=== PATIENT | female | born 1945 | race Two or more races ===

== ENCOUNTER 2017-03-30 16:05 | Emergency (ER) | payer MEDICARE, OTHER ==
[~2017-03-30] VITALS: Ht 157.5 cm; Wt 2.4 kg
[~2017-03-30 16:05] MED LIST: ATEN50TA PO; DIPH1TAB PO; LOSA1TAB36 PO; MECL-118 PO; MELO-270 PO; METH10TA7 PO; OMEP40CA37 PO; SULF1TAB44 PO
--- NOTE | 2017-03-30 16:15 | NUR ---
RN OPENING NOTE ER PT ARRIVED FROM HOME WITH DTR BY CAR. TRIP AND FALL NO LOSS OF CONSCIOUSNESS. C/O LEFT HUMERAL PAIN 10/16. AMBL INDEP. AAO4. NORMAL RESP. PINK WARM DRY SKIN.
[2017-03-30] MEDS ORDERED: HYDROCODONE/APAP 5/325MG 1 EACH TABLET ONE (16:58)
[2017-03-30] MEDS ORDERED: HYDROCODONE/APAP 5/325MG 1 EACH TABLET PO ONE (17:00)
[2017-03-30 17:40] VITALS: BP 138/80
--- NOTE | 2017-03-30 17:41 | NUR ---
Patient discharged to home in stable condition. Written and verbal after care instructions given. Patient verbalizes understanding of instruction.
== END 2017-03-30 17:42 | disposition home or self-care (01) ==
LOC: ER 16:17
DX: S42.292A Other displaced fracture of upper end of left humerus, initial encounter for closed fracture (principal); I10 Essential (primary) hypertension; W18.39XA Other fall on same level, initial encounter; Y93.89 Activity, other specified; Y92.89 Other specified places as the place of occurrence of the external cause; Y99.8 Other external cause status
CPT/HCPCS: 73030; 73080; 99284; A4606; Z7610

== ENCOUNTER 2019-11-05 15:45 | Inpatient (IN) | payer MEDICARE, OTHER ==
[~2019-11-05] VITALS: Ht 160 cm; Wt 83.7 kg
[~2019-11-05 15:45] MED LIST changes: +MELO-105 PO; -MELO-270 PO; +OMEP40CA13 PO; -OMEP40CA37 PO
--- NOTE | 2019-11-05 16:15 | NUR ---
patient bib daughter from home, c/o RUQ abd pain and diarrhea x 2 weeks. On room air breathing evenly and unlabored. connected to the monitor and pulse ox. kept comfortable, will continue to monitor accordingly.
[2019-11-05] MEDS ORDERED: ONDANSETRON HCL/PF 4 MG/2 ML VIAL ONE (16:18)
[2019-11-05] MEDS ORDERED: MORPHINE SULFATE INJ 4 MG/ML DISP.SYRIN ONE (16:18)
[2019-11-05 16:27] LABS: BASOPHILS # (AUTO) 0.1 /CMM (0.0-0.2); BASOPHILS % (AUTO) 0.6 % (0.0-2.0); EOSINOPHILS % (AUTO) 1.7 % (0.0-6.0); HEMATOCRIT 33 % (33-45); HEMOGLOBIN 10.7 g/dL (11.5-14.8); LYMPHOCYTES # (AUTO) 2.1 /CMM (0.8-4.8); MEAN CORPUSCULAR HGB CONC 33 g/dl (31.0-36.0); MEAN CORPUSCULAR VOLUME 85 fL (82-100); MONOCYTES # (AUTO) 1.1 /CMM (0.1-1.30); MONOCYTES % (AUTO) 6.9 % (2.0-12.0); NEUTROPHILS # (AUTO) 12.6 /CMM (1.8-8.9); NEUTROPHILS % (AUTO) 77.8 % (43.0-81.0); PLATELET COUNT (AUTO) 289 /CMM (150-450); RED BLOOD CELL COUNT(AUTO) 3.87 MIL/uL (4.0-5.2); WHITE BLOOD COUNT (AUTO) 16.2 K/uL (4.3-11.0)
[2019-11-05] MEDS ORDERED: MORPHINE SULFATE INJ 2 MG/ML DISP.SYRIN IV ONE (16:30)
[2019-11-05] MEDS ORDERED: ONDANSETRON HCL/PF 4 MG/2 ML VIAL IVP ONE (16:30)
--- NOTE | 2019-11-05 16:31 | NUR ---
elevator technician at bedside for exam
[2019-11-05 16:47] LABS: ALANINE AMINOTRANSFERASE 35 U/L (12-78); ALBUMIN 3.5 g/dL (3.4-5.0); ALKALINE PHOSPHATASE 87 U/L (46-116); ASPARTATE AMINOTRANSFERASE 23 U/L (15-37); BILIRUBIN,DIRECT 0.2 mg/dL (0.0-0.2); BILIRUBIN,TOTAL 0.7 mg/dL (0.2-1.0); CALCIUM, SERUM 8.9 mg/dL (8.5-10.1); CARBON DIOXIDE 29 mmol/L (21-32); CHLORIDE 98 mmol/L (98-107); CREATININE 1.4 mg/dL (0.6-1.3); GLUCOSE 99 mg/dL (74-106); LIPASE 169 U/L (73-393); SODIUM SERUM 137 mmol/L (136-145); TOTAL PROTEIN, SERUM 7.7 g/dL (6.4-8.2); UREA NITROGEN, BLOOD 31 mg/dL (7-18)
[2019-11-05 16:48] LABS: POTASSIUM 2.7 mmol/L (3.5-5.1)
[2019-11-05] MEDS ORDERED: IV PREMIX D5 1/2NS + KCL 1,000 ML IV ONE (16:49)
[2019-11-05] MEDS ORDERED: PIPERACILLIN /TAZOBACTAM 3.375 G in IV D5W 50 ML IV ONE (17:00)
--- NOTE | 2019-11-05 17:08 | NUR ---
TEXTED SURGERY TRAIN STARTER IS DR. THOMPSON.
--- NOTE | 2019-11-05 17:09 | NUR ---
SUBMITTED MOVE SHEET AND CALLED FOR BED.
--- NOTE | 2019-11-05 17:11 | NUR ---
EPIC PAGED ITS SONALI.
[2019-11-05] MEDS ORDERED: LOSA50TA39 MT (17:15)
[2019-11-05] MEDS ORDERED: MYRBETRIQ MT (17:15)
[2019-11-05] MEDS ORDERED: DEXL30CA3 MT (17:15)
[2019-11-05] MEDS ORDERED: MELO-107 MT (17:15)
[2019-11-05] MEDS ORDERED: TEMA15CA MT (17:15)
[2019-11-05] MEDS ORDERED: ERGO500014 MT (17:15)
[2019-11-05] MEDS ORDERED: GABA300C MT (17:15)
[2019-11-05] MEDS ORDERED: OMEP20CA15 MT (17:15)
[2019-11-05] MEDS ORDERED: MAGN400T26 MT (17:15)
[2019-11-05] MEDS ORDERED: MONT10TA22 MT (17:15)
[2019-11-05] MEDS ORDERED: ESCI20TA MT (17:15)
[2019-11-05] MEDS ORDERED: FERR325T24 MT (17:15)
[2019-11-05] MEDS ORDERED: METH5TAB6 MT (17:15)
[2019-11-05] MEDS ORDERED: ASPI-1152 MT (17:15)
[2019-11-05] MEDS ORDERED: HYDR12.55 MT (17:15)
[2019-11-05] MEDS ORDERED: ALEN70TA6 MT (17:15)
--- NOTE | 2019-11-05 17:22 | NUR ---
ER DOC TALKING TO ADMITING MD
--- NOTE | 2019-11-05 17:23 | NUR ---
ROOM ASSIGNMENT: [id number] TELE
[2019-11-05 17:34] LABS: APPEARANCE,URINE Clear (CLEAR); BILIRUBIN,URINE Negative (NEGATIVE); BLOOD, URINE Trace-intact Ery/uL (NEGATIVE); COLOR,URINE Yellow (YELLOW); KETONES,URINE Negative (NEGATIVE); LEUKOCYTE ESTERASE ,URINE Trace (NEGATIVE); NITRITE, URINE Negative (NEGATIVE); PROTEIN,URINE 30 mg/dl (NEGATIVE); UGLUCOSE Negative (NEGATIVE); UROBILINOGEN,URINE 0.2 EU/dL (0.2)
[2019-11-05 17:46] LABS: BACTERIA,URINE Many /HPF (None Seen)
[2019-11-05 17:47] LABS: SQUAMOUS EPITHELIAL CELL,UR Few /HPF (None Seen)
--- NOTE | 2019-11-05 17:59 | NUR ---
Report given to yanna SÁNCHEZ for coco.
[2019-11-05] MEDS ORDERED: TEMAZEPAM 15 MG CAPSULE PO PRN (18:00)
--- NOTE | 2019-11-05 18:29 | NUR ---
wheeled patient via gurney accompanied by RN and emt in no distress. RN at bedside to assume care.
--- NOTE | 2019-11-05 19:20 | NUR ---
RN NOTES, PATIENT IN BED ADMITTED FROM ER EARLIER, AT THIS TIME PATIENT IN BED DAUGHTER AT BEDSIDE, ADMITTED UNDER DR LYON SERVICES, WITH ADMITTING DX CHOLECYSTITIS, PATIENT WITH ABDOMINAL PAIN SUBSIDED AT THIS TIME, MORPHINE ADMINISTERED IN ER, WILL F/U FOR PAIN MANAGEMENT, PATIENT A/O X3 ABLE TO VERBALIZED NEEDS AND CONCERNS, BREATHING EVEN AND UNLABORED, NO SOB/ACUTE DISTRESS NOTED, AFEBRILE AT THIS TIME, LEFT AC IV ACCESS 18G PATENT AND INTACT, IVF INFUSING ORDERED, BED LOCKED AND IN LOW POSITION, WILL CONTINUE TO MONITOR CLOSELY, AND F/U WITH MD ORDERS.
[2019-11-05] MEDS ORDERED: ONDANSETRON HCL/PF 4 MG/2 ML VIAL IVP PRN (19:30)
[2019-11-05] MEDS ORDERED: Z GUARD REMEDY 2 OZ OINT TP PRN (19:30)
[2019-11-05] MEDS ORDERED: HYDROCODONE/APAP 5/325MG 1 EACH TABLET PO PRN (19:30)
[2019-11-05] MEDS ORDERED: MAG HYDROX/AL HYDROX/SIMETH 30 ML UDC PO PRN (19:30)
[2019-11-05] MEDS ORDERED: ACETAMINOPHEN 325 MG TABLET PO PRN (19:30)
[2019-11-05] MEDS ORDERED: MAGNESIUM HYDROXIDE 30 ML UDC PO PRN (19:30)
[2019-11-05 20:00] VITALS: BP 143/64
[2019-11-05] MEDS: MORPHINE SULFATE INJ 2 MG/ML DISP.SYRIN IV PRN (20:34)
[2019-11-05] MEDS: PIPERACILLIN /TAZOBACTAM 3.375 G in IV D5W 100 ML IV SCH (21:17)
[2019-11-05] MEDS: IV D5/0.45 NACL 1,000 ML IV PRN (23:20)
[2019-11-06 04:00] VITALS: BP 119/61
[2019-11-06 04:12] VITALS: BP 119/61
[2019-11-06] MEDS: MORPHINE SULFATE INJ 2 MG/ML DISP.SYRIN IV PRN ×4 (04:49→21:00)
[2019-11-06] MEDS: PIPERACILLIN /TAZOBACTAM 3.375 G in IV D5W 100 ML IV SCH ×3 (05:00→21:54)
[2019-11-06 06:18] LABS: BASOPHILS # (AUTO) 0.1 /CMM (0.0-0.2); BASOPHILS % (AUTO) 0.6 % (0.0-2.0); EOSINOPHILS % (AUTO) 2.9 % (0.0-6.0); HEMATOCRIT 30 % (33-45); HEMOGLOBIN 9.8 g/dL (11.5-14.8); LYMPHOCYTES # (AUTO) 1.9 /CMM (0.8-4.8); LYMPHOCYTES % (AUTO) 14.5 % (20.0-44.0); MEAN CORPUSCULAR HGB CONC 33 g/dl (31.0-36.0); MEAN CORPUSCULAR VOLUME 85 fL (82-100); MONOCYTES % (AUTO) 7.7 % (2.0-12.0); NEUTROPHILS # (AUTO) 9.9 /CMM (1.8-8.9); NEUTROPHILS % (AUTO) 74.3 % (43.0-81.0); PLATELET COUNT (AUTO) 257 /CMM (150-450); RED BLOOD CELL COUNT(AUTO) 3.57 MIL/uL (4.0-5.2); WHITE BLOOD COUNT (AUTO) 13.3 K/uL (4.3-11.0)
[2019-11-06 06:47] LABS: ALBUMIN 2.8 g/dL (3.4-5.0); BILIRUBIN,DIRECT 0.4 mg/dL (0.0-0.2); BILIRUBIN,TOTAL 1.2 mg/dL (0.2-1.0); CALCIUM, SERUM 8.4 mg/dL (8.5-10.1); CREATININE 1.2 mg/dL (0.6-1.3); MAGNESIUM 1.5 mg/dL (1.8-2.4); PHOSPHORUS 2.8 mg/dL (2.5-4.9); TOTAL PROTEIN, SERUM 6.8 g/dL (6.4-8.2)
--- NOTE | 2019-11-06 06:48 | NUR ---
RN NOTES, PATIENT IN BED, ASLEEP AT THIS TIME, BUT AROUSABLE TO VERBAL STIMULI, A/O X3, ABLE TO VERBALIZE NEEDS AND CONCERNS, NO SIGNIFICANT CHANGE IN CONDITION DURING THE NIGHT, BREATHING EVEN AND UNLABORED, NO SOB/ACUTE DISTRESS NOTED, ON PAIN MANAGEMENT, PER DR MARCEL THOMPSON AWARE OF PATIENT POSSIBLE PROCEDURE FOR CHOLECYSTITIS, BED LOCKED IN IN LOW POSITION, CALL LIGHT W/I REACH, WILL ENDORSE CONTINUITY OF CARE TO ONCOMING NURSE.
[2019-11-06 07:01] LABS: POTASSIUM 2.6 mmol/L (3.5-5.1)
[2019-11-06] MEDS: PANTOPRAZOLE 40 MG TABLET.DR PO SCH (07:30)
--- NOTE | 2019-11-06 07:32 | NUR ---
CONTACTED [facility] IN REGARDS TO PATIENT'S K+ 2.6. AWAITING CALL BACK.
[2019-11-06 08:00] VITALS: BP 112/64
[2019-11-06] MEDS: MONTELUKAST SODIUM (10MG) 10 MG TABLET PO SCH (08:00)
[2019-11-06] MEDS ORDERED: POTASSIUM CHLORIDE 10 MEQ/50 ML PREMIXED IVPB FOR PERIPHERAL LINE IV ONE (08:00)
[2019-11-06] MEDS: METHIMAZOLE (5MG) 5 MG TABLET PO SCH (08:00)
[2019-11-06] MEDS: LOSARTAN POTASSIUM 50 MG TABLET PO SCH ×2 (08:00→17:00)
[2019-11-06] MEDS: MAGNESIUM OXIDE 400 MG TABLET PO SCH (08:00)
[2019-11-06] MEDS: GABAPENTIN 300 MG CAPSULE PO SCH (08:00)
[2019-11-06] MEDS: ESCITALOPRAM OXALATE (10 MG) 10 MG TABLET PO SCH (08:00)
[2019-11-06 08:28] LABS: IRON, SERUM 23 ug/dl (50-175); TOTAL IRON BINDING CAPACITY 203 ug/dl (250-450)
--- NOTE | 2019-11-06 08:30 | NUR ---
RN OPENING NOTE: RECEIVED PATIENT IN BED THIS MORNING. PATIENT IS ALERT AND ORIENTED X4, RESPONDS APPROPRIATELY, SERBIAN SPEAKING ONLY. AMBULATORY, STEADY GAIT. NPO STATUS. #18 LAC, C/D/I. FLUSHING WELL, NO SIGNS OF COMPLICATIONS NOTED. ISOLATION PRECAUTIONS TO R/O COVID. SAFETY MEASURES IMPLEMENTED, BED IN LOWEST POSITION, LOCKED, SIDE RAILS UP X2, CALL LIGHT WITHIN REACH. WILL CONTINUE TO MONITOR PATIENT FOR CHANGES.
[2019-11-06 08:42] LABS: FERRITIN 178 ng/mL (8-388)
[2019-11-06] MEDS: Magnesium 1GM/D5W 100ML PREMIX 100 ML IV SCH ×2 (08:50→09:55)
[2019-11-06] MEDS: POTASSIUM CL. PREMIX PERIPHER. 50 ML IV SCH ×6 (08:50→17:02)
[2019-11-06] MEDS ORDERED: HYDROCHLOROTHIAZIDE 25 MG TABLET PO SCH (09:00)
--- NOTE | 2019-11-06 11:49 | NUR ---
MRI PENDING DUE TO COVID RESULT.
--- NOTE | 2019-11-06 12:56 | NUR ---
RADIOLOGY CONTACTED ME IN REGARDS TO MRCP WITHOUT CONTRAST. RADIOLOGY UNABLE TO PERFORM PROCEDURE UNTIL COVID RESULTS ARE AVAILABLE. MD DESTINEE AWARE AND OK WITH IT.
[2019-11-06 16:20] VITALS: BP 121/98
--- NOTE | 2019-11-06 19:24 | NUR ---
RN CLOSING NOTE: PATIENT REMAINS IN BED. NO SIGNS OF ACUTE DISTRESS NOTED. SAFETY MEASURES IMPLEMENTED, BED IN LOWEST POSITION, LOCKED, SIDE RAILS UP, CALL LIGHT WITHIN REACH. ENDORSED TO ONCOMING SHIFT RN FOR CONTINUITY OF CARE.
[2019-11-06 20:00] VITALS: BP_SYST 119; BP_SYST 147; BP_DIAS 61; BP_DIAS 72
--- NOTE | 2019-11-06 20:00 | NUR ---
MS RN NOTE PT IN BED AWAKE, NO DISTRESS OR DISCOMFORT NOTED. DENIES PAIN. WANTS TO GO TO BATHROOM, ASSISTED HER. IVF D5 1/2 NS AT 75 ML/HR AND ZOSYN 3.375 G INFUSING AT 25 ML/HR LAC. NO S/S OF INFILTRATION NOTED. SIDE RAILS UP X 2 AND CALL LIGHT WITHIN REACH. VSS. CONTINUE TO MONITOR HER.
--- NOTE | 2019-11-06 21:00 | NUR ---
MS RN NOTE PT C/O PAIN 8/10 IN RIGHT UPPER ABD, MORPHINE 2 MG IVP GIVEN. CONTINUE TO MONITOR HER.
--- NOTE | 2019-11-06 21:30 | NUR ---
MS RN NOTE PAIN SUBSIDED 06/18. NO FURTHER DISTRESS NOTED. ALL NEEDS ATTENDED.
[2019-11-06] MEDS: IV D5/0.45 NACL 1,000 ML IV PRN (21:55)
[2019-11-07 04:00] VITALS: BP 127/72
[2019-11-07] MEDS: MORPHINE SULFATE INJ 2 MG/ML DISP.SYRIN IV PRN ×4 (04:33→20:12)
[2019-11-07] MEDS: PIPERACILLIN /TAZOBACTAM 3.375 G in IV D5W 100 ML IV SCH (05:37)
--- NOTE | 2019-11-07 06:22 | NUR ---
MS RN NOTE PT IN BED ASLEEP, AROUSABLE. NO DISTRESS OR DISCOMFORT NOTED. DENIES PAIN. IVF INFUSING WELL, NO S/S INFILTRATION NOTED. ALL NEEDS ATTENDED. SIDE RAILS UP X 2 AND CALL LIGHT WITHIN REACH. WILL ENDORSE TO DAY SHIFT NURSE FOR CONTINUE TO CARE.
[2019-11-07 06:57] LABS: BASOPHILS # (AUTO) 0.1 /CMM (0.0-0.2); BASOPHILS % (AUTO) 0.6 % (0.0-2.0); EOSINOPHILS % (AUTO) 4.3 % (0.0-6.0); HEMATOCRIT 31 % (33-45); LYMPHOCYTES # (AUTO) 1.9 /CMM (0.8-4.8); LYMPHOCYTES % (AUTO) 15.9 % (20.0-44.0); MEAN CORPUSCULAR HGB CONC 33 g/dl (31.0-36.0); MEAN CORPUSCULAR VOLUME 85 fL (82-100); MONOCYTES % (AUTO) 8.3 % (2.0-12.0); NEUTROPHILS # (AUTO) 8.3 /CMM (1.8-8.9); NEUTROPHILS % (AUTO) 70.9 % (43.0-81.0); PLATELET COUNT (AUTO) 267 /CMM (150-450); RED BLOOD CELL COUNT(AUTO) 3.61 MIL/uL (4.0-5.2); WHITE BLOOD COUNT (AUTO) 11.7 K/uL (4.3-11.0)
[2019-11-07 07:08] LABS: ALBUMIN 2.7 g/dL (3.4-5.0); BILIRUBIN,TOTAL 1.1 mg/dL (0.2-1.0); CALCIUM, SERUM 8.7 mg/dL (8.5-10.1); CREATININE 1.1 mg/dL (0.6-1.3); MAGNESIUM 1.7 mg/dL (1.8-2.4); PHOSPHORUS 2.2 mg/dL (2.5-4.9); POTASSIUM 2.9 mmol/L (3.5-5.1); TOTAL PROTEIN, SERUM 6.7 g/dL (6.4-8.2)
[2019-11-07 07:27] LABS: THYROID STIMULATING HORMONE 1.668 uIU/mL (0.358-3.74)
[2019-11-07] MEDS: PANTOPRAZOLE 40 MG TABLET.DR PO SCH (07:30)
[2019-11-07 08:00] VITALS: BP 137/62
--- NOTE | 2019-11-07 08:00 | NUR ---
[facility] RN OPENING NOTE: RECEIVIED PATIENT IN BED. PT IS ON ROOM AIR. PT IS NPO. COVID TESTING STILL PENDING. NO SIGNS OF ACUTE DISTRESS NOTED. SAFETY MEASURES IMPLEMENTED, BED IN LOWEST POSITION, LOCKED, SIDE RAILS UP, CALL LIGHT WITHIN REACH. WILL CONTINUE TO MONITOR
[2019-11-07] MEDS: GABAPENTIN 300 MG CAPSULE PO SCH (09:00)
[2019-11-07] MEDS: LOSARTAN POTASSIUM 50 MG TABLET PO SCH ×2 (09:00→16:55)
[2019-11-07] MEDS: ESCITALOPRAM OXALATE (10 MG) 10 MG TABLET PO SCH (09:00)
[2019-11-07] MEDS: MAGNESIUM OXIDE 400 MG TABLET PO SCH (09:00)
[2019-11-07] MEDS: METHIMAZOLE (5MG) 5 MG TABLET PO SCH (09:00)
[2019-11-07] MEDS: MONTELUKAST SODIUM (10MG) 10 MG TABLET PO SCH (09:00)
[2019-11-07] MEDS: NEUTRA PHOS 1 POWD.PACKET PO SCH ×2 (10:00→17:05)
[2019-11-07] MEDS: POTASSIUM CHLORIDE 20 MEQ TAB.PRT.SR PO SCH ×3 (10:00→12:00)
[2019-11-07] MEDS: Magnesium 1GM/D5W 100ML PREMIX 100 ML IV SCH ×2 (10:45→10:47)
[2019-11-07] MEDS: CEFTRIAXONE 1 G in IV D5W 50 ML IV SCH (14:50)
[2019-11-07 15:10] LABS: *SPE A/G RATIO 0.8 (0.7-1.7); *SPE ALBUMIN 2.7 g/dL (2.9-4.4); *SPE ALPHA-1-GLOBULIN 0.4 g/dL (0.0-0.4); *SPE BETA GLOBULIN 1.1 g/dL (0.7-1.3); *SPE GLOBULIN, TOTAL 3.2 g/dL (2.2-3.9); *SPE M-SPIKE Not Observed g/dL (Not Observed); *SPEGAMMA GLOBULIN 0.7 g/dL (0.4-1.8)
--- NOTE | 2019-11-07 17:41 | NUR ---
[facility] RN CLOSING NOTES PATIENT IS RESTING IN BED. PT IS ON ROOM AIR. PT IS NPO. COVID TESTING STILL PENDING. NO SIGNS OF ACUTE DISTRESS NOTED. ALL NEED ARE MET. INFORMED DR THAT FAMILY MEMBER DAUGHTER WOULD LIKE TO SPEAK TO THE DOCTOR. SAFETY MEASURES IMPLEMENTED, BED IN LOWEST POSITION, LOCKED, SIDE RAILS UP, CALL LIGHT WITHIN REACH. WILL ENDORSE TO NIGHTSHIFTS.
[2019-11-07 20:00] VITALS: BP 138/64
--- NOTE | 2019-11-07 20:00 | NUR ---
RN OPENING NOTE PT RECEIVED IN BED .PT IS A/A/O X4. NO RESPIRATORY DISTRESS NOTED. PT SATING 95% ON RA.PT HAS 20 G ON LAC D2 1/2 NS RUNNING AT 75 ML/H DRESSING INTACT. SAFETY MEASURES IN PLACE BED AT LOWEST POSITION, LOCKED, SIDE RAILS UP X2 , CALL LIGHT IN REACH. WILL CONTINUE TO MONITOR.
[2019-11-07] MEDS: IV D5/0.45 NACL 1,000 ML IV PRN (20:11)
--- NOTE | 2019-11-07 21:00 | NUR ---
RN NOTE RECEIVED CALL FROM LAB REGARDING PT COVID RESULT WHICH IS NEGATIVE.
--- NOTE | 2019-11-07 22:30 | NUR ---
RN NOTE PT TRANSFERRED TO MED SURGE TO, REPORT GIVEN TO MARCUS.
[2019-11-07 22:37] VITALS: BP 143/65
--- NOTE | 2019-11-07 23:07 | NUR ---
CHARTER DRIVER NOTES Pt WAS TRANSFERRED FROM [facility] FLOOR TO [facility] 2 ROOM 203, SINCE COVID TEST RESULTS CAME BACK NEGATIVE. RECEIVED BEDSIDE REPORT FROM [facility] RN. RECEIVED Pt AWAKE IN BED. NO S/S OF ACUTE DISTRESS OR SOB NOTED. IV ACCESS ON LAC. PER REPORT Pt IS PENDING A MRCP W/O CONTRAST, ONCE COVID SWAB IS RESULTED. WILL ENDORSE TO DAYSHIFT RN TO F/U. SAFETY MEASURES IN PLACE. BED LOW, LOCKED, HOB ELEVATED, SIDE RAILS UP, CALL LIGHT AND BEDSIDE TABLE WITHIN REACH. WILL CONTINUE TO MONITOR Pt's CONDITION AND SAFETY THROUGHOUT THE NIGHT.
[2019-11-08] MEDS: MORPHINE SULFATE INJ 2 MG/ML DISP.SYRIN IV PRN ×5 (02:56→22:57)
[2019-11-08] MEDS: IV D5/0.45 NACL 1,000 ML IV PRN (04:31)
[2019-11-08 06:59] LABS: BASOPHILS # (AUTO) 0.1 /CMM (0.0-0.2); BASOPHILS % (AUTO) 0.8 % (0.0-2.0); EOSINOPHILS % (AUTO) 4.7 % (0.0-6.0); HEMATOCRIT 32 % (33-45); HEMOGLOBIN 10.2 g/dL (11.5-14.8); LYMPHOCYTES # (AUTO) 2.5 /CMM (0.8-4.8); LYMPHOCYTES % (AUTO) 20.4 % (20.0-44.0); MEAN CORPUSCULAR HGB CONC 32 g/dl (31.0-36.0); MEAN CORPUSCULAR VOLUME 85 fL (82-100); MONOCYTES % (AUTO) 8.1 % (2.0-12.0); NEUTROPHILS # (AUTO) 8.2 /CMM (1.8-8.9); PLATELET COUNT (AUTO) 319 /CMM (150-450); RED BLOOD CELL COUNT(AUTO) 3.76 MIL/uL (4.0-5.2); WHITE BLOOD COUNT (AUTO) 12.4 K/uL (4.3-11.0)
[2019-11-08 07:16] LABS: CALCIUM, SERUM 8.7 mg/dL (8.5-10.1); CREATININE 0.9 mg/dL (0.6-1.3); MAGNESIUM 1.8 mg/dL (1.8-2.4); PHOSPHORUS 2.6 mg/dL (2.5-4.9); POTASSIUM 3.1 mmol/L (3.5-5.1)
[2019-11-08] MEDS: PANTOPRAZOLE 40 MG TABLET.DR PO SCH (07:30)
--- NOTE | 2019-11-08 07:40 | NUR ---
RN CLOSING NOTES ENDORSED TO DAYSHIFT GONZALO ACEVES FOR Pt's GARFIELD. NO SIGNIFICANT CHANGES NOTED DURING THE SHIFT. ALL NEEDS MET AND ATTENDED TO. NO S/S OF ACUTE DISTRESS OR SOB NOTED DURING THE NIGHT. SAFETY MEASURES IN PLACE.
[2019-11-08 08:00] VITALS: BP 158/69
--- NOTE | 2019-11-08 08:00 | NUR ---
MS RN OPENING NOTES Received Patient awake and resting in bed. A/O x 4, Telugu speaking. VS stable with no acute distress. Breathing even and unlabored on room air with no respiratory distress. Denies pain. No signs and symptoms of pain. 22g PIV on LAC clean, intact, patent and flushing well with D51/2NS infusing at 75ml/hr. Safety precautions in place. Bed locked and set to lowest position with side rails x 2 up. All needs rendered at this time. Call light within reach. Will continue to monitor.
[2019-11-08] MEDS: METHIMAZOLE (5MG) 5 MG TABLET PO SCH (08:28)
[2019-11-08] MEDS: LOSARTAN POTASSIUM 50 MG TABLET PO SCH ×2 (08:28→16:58)
[2019-11-08] MEDS: ESCITALOPRAM OXALATE (10 MG) 10 MG TABLET PO SCH (08:28)
[2019-11-08] MEDS: GABAPENTIN 300 MG CAPSULE PO SCH (08:28)
[2019-11-08] MEDS: MONTELUKAST SODIUM (10MG) 10 MG TABLET PO SCH (08:28)
[2019-11-08] MEDS: MAGNESIUM OXIDE 400 MG TABLET PO SCH (08:28)
[2019-11-08] MEDS ORDERED: POTASSIUM CHLORIDE 20 MEQ TAB.PRT.SR PO SCH (10:00)
[2019-11-08] MEDS: POTASSIUM CL. PREMIX PERIPHER. 50 ML IV SCH ×5 (10:25→17:19)
[2019-11-08 13:07] LABS: PTH, INTACT 55 pg/mL (15-65)
[2019-11-08] MEDS: CEFTRIAXONE 1 G in IV D5W 50 ML IV SCH (13:46)
[2019-11-08 15:08] LABS: *SPE A/G RATIO 0.8 (0.7-1.7); *SPE ALBUMIN 2.7 g/dL (2.9-4.4); *SPE ALPHA-1-GLOBULIN 0.5 g/dL (0.0-0.4); *SPE BETA GLOBULIN 1.1 g/dL (0.7-1.3); *SPE GLOBULIN, TOTAL 3.3 g/dL (2.2-3.9); *SPE M-SPIKE Not Observed g/dL (Not Observed); *SPEGAMMA GLOBULIN 0.7 g/dL (0.4-1.8)
[2019-11-08 16:00] VITALS: BP 159/78
--- NOTE | 2019-11-08 18:17 | NUR ---
MS RN CLOSING NOTES Patient awake and resting in bed. A/O x 4, Faroese speaking. VS stable with no acute distress. Breathing even and unlabored on room air with no respiratory distress. Denies pain. No signs and symptoms of pain. 22g PIV on RAC clean, intact, patent and flushing well. Safety precautions in place. Bed locked and set to lowest position with side rails x 2 up. All needs rendered at this time. Call light within reach. Will endorse plan of care to oncoming shift.
--- NOTE | 2019-11-08 19:35 | NUR ---
RN OPENING NOTES RECEIVED REPORT FROM NADINE RNKETAN. FOUND Pt AWAKE, RESTING IN BED. Pt IS A/OX4, VERBAL, ABLE TO MAKE NEEDS KNOWN. JAPANESE SPEAKING, BUT KNOWS LITTLE BIT OF CITIZEN OF [place]. NO S/S OF ACUTE DISTRESS OR SOB NOTED. IV ACCESS ON RAC #22G, SL. LAST BAG OF KCL RUNNING. SAFETY MEASURES IN PLACE. BED LOW, LOCKED, HOB ELEVATED, SIDE RAILS UP, CALL LIGHT AND BEDSIDE TABLE WITHIN REACH. WILL CONTINUE TO MONITOR Pt's CONDITION AND SAFETY THROUGHOUT THE NIGHT.
[2019-11-08 20:00] VITALS: BP 136/77
--- NOTE | 2019-11-08 20:00 | NUR ---
RN NOTES Pt IS SCHEDULED TO HAVE LAP GABRIELLA TOMORROW AT 0800. WILL BE NPO STARTING AT MIDNIGHT TONIGHT.
--- NOTE | 2019-11-08 23:25 | NUR ---
RN NOTES NOTICED THAT ONLY 4 BAGS OUT OF THE 6 BAGS ORDERED FOR THE KCL WAS GIVEN DURING DAYSHIFT. TRIED TO TAKE A BAG OF KCL OUT OF THE [facility] BUT WAS UNABLE TO DO SO. CALLED PHARMACY, AND THEY SAID THAT A NEW ORDER HAS TO BE GIVEN IN ORDER TO CONTINUE GIVING THE REMAINING 2 BAGS OF KCL. INFORMED ONCALL HOSPITALIST NICOLASA DUNBAR, AND SHE SAID OK TO PUT IN NEW ORDER FOR 2 BAGS OF KCL 10MEQ. WILL CARRY OUT ORDER
[2019-11-08] MEDS ORDERED: POTASSIUM CHLORIDE 10 MEQ/50 ML PREMIXED IVPB FOR PERIPHERAL LINE IV ONE (23:30)
[2019-11-09] MEDS ORDERED: POTASSIUM CHLORIDE 10 MEQ/50 ML PREMIXED IVPB FOR PERIPHERAL LINE IV ONE (00:30)
--- NOTE | 2019-11-09 01:31 | NUR ---
GONZALO NOTES Pt WAS ASKING FOR PAIN MEDS; C/O SEVERE ABD'L PAIN BUT THE PRN MORPHINE WAS NOT DUE YET UNTIL 299. ASKED Pt IF SHE WANTED THE NORCO INSTEAD, Pt SAID OK. SCANNED MED AND TOOK THE NORCO OUT OF THE PACKAGE, THEN Pt SAID SHE DID NOT WANT IT ANYMORE AND WANTED TO WAIT FOR WHEN THE MORPHINE WAS DUE. HAD TO WASTE THE NORCO. Addendum: 11/09/19 at 0139 by WALKER PRIETO RN GONZALO MOMIN WITNESSED WASTE.
[2019-11-09] MEDS: MORPHINE SULFATE INJ 2 MG/ML DISP.SYRIN IV PRN ×3 (04:21→23:06)
--- NOTE | 2019-11-09 06:26 | NUR ---
RN CLOSING NOTES NO SIGNIFICANT CHANGES IN Pt's CONDITION. ALL NEEDS MET AND ATTENDED TO. NO S/S OF ACUTE DISTRESS OR SOB NOTED DURING THE NIGHT. Pt RESTING COMFORTABLY IN BED. SAFETY MEASURES IN PLACE. SYLVIA QUIROZ SCHEDULED FOR TODAY @0800. WILL ENDORSE TO DAYSHIFT RN FOR Pt's GARFIELD.
[2019-11-09] MEDS ORDERED: FENTANYL PF 250MCG/5ML AMPUL ONE (07:00)
[2019-11-09] MEDS ORDERED: MIDAZOLAM HCL 2 MG/2ML VIAL ONE (07:00)
[2019-11-09] MEDS ORDERED: FAMOTIDINE/PF INJ 20 MG/2 ML VIAL IV ONE (07:02)
[2019-11-09] MEDS ORDERED: ROCURONIUM BROMIDE 50 MG/5 ML ONE (07:02)
[2019-11-09 07:09] LABS: BASOPHILS # (AUTO) 0.1 /CMM (0.0-0.2); BASOPHILS % (AUTO) 0.9 % (0.0-2.0); EOSINOPHILS % (AUTO) 5.7 % (0.0-6.0); HEMATOCRIT 30 % (33-45); HEMOGLOBIN 9.9 g/dL (11.5-14.8); LYMPHOCYTES # (AUTO) 2.2 /CMM (0.8-4.8); LYMPHOCYTES % (AUTO) 22.5 % (20.0-44.0); MEAN CORPUSCULAR HGB CONC 33 g/dl (31.0-36.0); MEAN CORPUSCULAR VOLUME 85 fL (82-100); MONOCYTES # (AUTO) 0.9 /CMM (0.1-1.30); MONOCYTES % (AUTO) 9.6 % (2.0-12.0); NEUTROPHILS # (AUTO) 5.9 /CMM (1.8-8.9); NEUTROPHILS % (AUTO) 61.3 % (43.0-81.0); PLATELET COUNT (AUTO) 309 /CMM (150-450); RED BLOOD CELL COUNT(AUTO) 3.51 MIL/uL (4.0-5.2); WHITE BLOOD COUNT (AUTO) 9.6 K/uL (4.3-11.0)
[2019-11-09] MEDS ORDERED: ANESTHESIA TRAY IN PYXIS 1 EA TRAY MC ONE (07:11)
[2019-11-09] MEDS ORDERED: BUPIVACAINE MPF 0.5% W/EPI INJ 30 ML VIAL ONE (07:17)
[2019-11-09] MEDS ORDERED: LIDOCAINE HCL/MPF 1% 30 ML VIAL IJ ONE (07:17)
[2019-11-09 07:25] LABS: CALCIUM, SERUM 8.9 mg/dL (8.5-10.1); CARBON DIOXIDE 26 mmol/L (21-32); CHLORIDE 102 mmol/L (98-107); CREATININE 0.9 mg/dL (0.6-1.3); GLUCOSE 94 mg/dL (74-106); MAGNESIUM 1.3 mg/dL (1.8-2.4); PHOSPHORUS 2.5 mg/dL (2.5-4.9); POTASSIUM 3.7 mmol/L (3.5-5.1); SODIUM SERUM 138 mmol/L (136-145); UREA NITROGEN, BLOOD 9 mg/dL (7-18)
[2019-11-09] MEDS: PANTOPRAZOLE 40 MG TABLET.DR PO SCH (07:30)
[2019-11-09 07:33] LABS: ALBUMIN 2.7 g/dL (3.4-5.0); BILIRUBIN,DIRECT 0.2 mg/dL (0.0-0.2); BILIRUBIN,TOTAL 0.5 mg/dL (0.2-1.0); TOTAL PROTEIN, SERUM 6.8 g/dL (6.4-8.2)
[2019-11-09] MEDS ORDERED: CLINDAMYCIN 900 MG/6 ML VIAL ONE (07:38)
--- NOTE | 2019-11-09 07:38 | NUR ---
MS RN NOTES PATIENT LEFT FOR SURGERY BEFORE RECEIVING REPORT. WILL CONTINUE CARE WHEN PATIENT IS BACK FROM OR.
[2019-11-09] MEDS: GABAPENTIN 300 MG CAPSULE PO SCH (08:30)
[2019-11-09] MEDS: ESCITALOPRAM OXALATE (10 MG) 10 MG TABLET PO SCH (08:30)
[2019-11-09] MEDS: MAGNESIUM OXIDE 400 MG TABLET PO SCH (08:30)
[2019-11-09] MEDS: LOSARTAN POTASSIUM 50 MG TABLET PO SCH ×2 (08:30→16:15)
[2019-11-09] MEDS: METHIMAZOLE (5MG) 5 MG TABLET PO SCH (08:36)
[2019-11-09] MEDS: MONTELUKAST SODIUM (10MG) 10 MG TABLET PO SCH (08:36)
[2019-11-09] MEDS ORDERED: IBUPROFEN 400 MG TABLET PO PRN (09:30)
[2019-11-09] MEDS ORDERED: ACETAMINOPHEN 325 MG TABLET PO PRN (09:30)
[2019-11-09] MEDS ORDERED: HYDROCODONE/APAP 5/325MG 1 EACH TABLET PO PRN (09:30)
[2019-11-09] MEDS ORDERED: HYDROMORPHONE 1 MG/1 ML DISP.SYRIN ONE (09:42)
[2019-11-09] MEDS: Magnesium 1GM/D5W 100ML PREMIX 100 ML IV SCH ×4 (10:40→14:25)
--- NOTE | 2019-11-09 11:03 | NUR ---
MS RN NOTES PATIENT BACK FR0M SURGERY VS: BP: 131/62 HR: 77 TEMP: 97.8 O2 96% ON 2 L
[2019-11-09] MEDS: CEFTRIAXONE 1 G in IV D5W 50 ML IV SCH (15:33)
[2019-11-09 16:05] VITALS: BP 140/70
--- NOTE | 2019-11-09 18:55 | NUR ---
MS RN CLOSING NOTES PATIENT IN BED, AWAKE, A/O X3. PATIENT ON OXYGEN THERAPY 2 LPM VIA NASAL CANNULA; BREATHING IS EVEN AND UNLABORED. POST SURGERY WITH ROOPA DRAIN WITH DAILY DRAIN OF 70 MLS. RAC G # 22 AND L HAND G # 20 PRESENT AND INTACT, FLUSHING WELL. ALL NEEDS ATTENDED TO THROUGHOUT THE DAY. SAFETY PRECAUTIONS IN PLACE; BED IN LOW POSITION AND LOCKED, RAILS UP X2, CALL LIGHT WITHIN REACH. WILL ENDORSE TO LIGHTOUT EXAMINER NURSE.
--- NOTE | 2019-11-09 19:23 | NUR ---
RN OPENING NOTES RECEIVED REPORT FROM KIARRA MCCOY RN. FOUND Pt AWAKE, RESTING IN BED, TALKING ON THE PHONE. Pt IS A/OX4, VERBAL, ABLE TO MAKE NEEDS KNOWN. WELSH SPEAKING, BUT KNOWS LITTLE BIT OF SUDANESE. NO S/S OF ACUTE DISTRESS OR SOB NOTED. IV ACCESS ON RAC #22G, SL & LHAND #20G, SL. S/P LAP GABRIELLA TODAY. ROOPA DRAIN LOCATED ON RT SIDE ABD. NO SIGNS OF BLEEDING NOTED ON DRESSING. NO C/O SEVERE PAIN AT THIS TIME. SAFETY MEASURES IN PLACE. BED LOW, LOCKED, HOB ELEVATED, SIDE RAILS UP, CALL LIGHT AND BEDSIDE TABLE WITHIN REACH. WILL CONTINUE TO MONITOR Pt's CONDITION AND SAFETY THROUGHOUT THE NIGHT.
[2019-11-09 20:05] VITALS: BP 138/80
[2019-11-09 20:40] VITALS: BP 138/80
--- NOTE | 2019-11-09 23:08 | NUR ---
RN medsurg notes Pt is complaining of pain on her abdomen and requesting pain meds. Administered morphine sulfate 1mg/0.5ml as ordered for pain 8/10 on pain scale. Primary nurse is on break. Safety precautions is maintained. Will continue to monitor.
[2019-11-10] MEDS: MORPHINE SULFATE INJ 2 MG/ML DISP.SYRIN IV PRN ×4 (05:15→20:58)
--- NOTE | 2019-11-10 06:33 | NUR ---
RN CLOSING NOTES NO SIGNIFICANT CHANGES IN Pt's CONDITION. ALL NEEDS MET AND ATTENDED TO. NO S/S OF ACUTE DISTRESS OR SOB NOTED DURING THE NIGHT. Pt IS RESTING COMFORTABLY IN BED. SAFETY MEASURES IN PLACE. ROOPA DRAIN OUTPUT 75CC. WILL ENDORSE TO DAYSHIFT RN FOR Pt's GARFIELD.
[2019-11-10] MEDS: PANTOPRAZOLE 40 MG TABLET.DR PO SCH (06:41)
--- NOTE | 2019-11-10 07:25 | NUR ---
PATIENT RESTING IN BED , NO DISTRESS NOTED, ON O2 2L VIA NC. WILL CONTINUE TO MONITOR
[2019-11-10 08:00] VITALS: BP_SYST 120; BP_SYST 129; BP_DIAS 60
[2019-11-10] MEDS: MONTELUKAST SODIUM (10MG) 10 MG TABLET PO SCH (08:21)
[2019-11-10] MEDS: ESCITALOPRAM OXALATE (10 MG) 10 MG TABLET PO SCH (08:22)
[2019-11-10] MEDS: GABAPENTIN 300 MG CAPSULE PO SCH (08:22)
[2019-11-10] MEDS: LOSARTAN POTASSIUM 50 MG TABLET PO SCH ×2 (08:22→17:00)
[2019-11-10] MEDS: METHIMAZOLE (5MG) 5 MG TABLET PO SCH (08:22)
[2019-11-10] MEDS: MAGNESIUM OXIDE 400 MG TABLET PO SCH (08:22)
[2019-11-10 09:26] LABS: BASOPHILS # (AUTO) 0.1 /CMM (0.0-0.2); BASOPHILS % (AUTO) 0.6 % (0.0-2.0); EOSINOPHILS % (AUTO) 1.4 % (0.0-6.0); HEMATOCRIT 30 % (33-45); HEMOGLOBIN 9.7 g/dL (11.5-14.8); LYMPHOCYTES # (AUTO) 2.1 /CMM (0.8-4.8); LYMPHOCYTES % (AUTO) 14.5 % (20.0-44.0); MEAN CORPUSCULAR HGB CONC 33 g/dl (31.0-36.0); MEAN CORPUSCULAR VOLUME 85 fL (82-100); MONOCYTES # (AUTO) 1.1 /CMM (0.1-1.30); MONOCYTES % (AUTO) 7.7 % (2.0-12.0); NEUTROPHILS % (AUTO) 75.8 % (43.0-81.0); PLATELET COUNT (AUTO) 336 /CMM (150-450); RED BLOOD CELL COUNT(AUTO) 3.53 MIL/uL (4.0-5.2); WHITE BLOOD COUNT (AUTO) 14.6 K/uL (4.3-11.0)
[2019-11-10 09:38] LABS: CALCIUM, SERUM 8.6 mg/dL (8.5-10.1); CREATININE 1.2 mg/dL (0.6-1.3); MAGNESIUM 1.7 mg/dL (1.8-2.4); POTASSIUM 3.4 mmol/L (3.5-5.1)
[2019-11-10] MEDS ORDERED: POTASSIUM CHLORIDE 20 MEQ POWDER PACKET PO ONE (11:30)
[2019-11-10] MEDS: Magnesium 1GM/D5W 100ML PREMIX 100 ML IV SCH ×2 (12:04→12:45)
[2019-11-10] MEDS: CEFTRIAXONE 1 G in IV D5W 50 ML IV SCH (14:07)
[2019-11-10 16:00] VITALS: BP 127/65
--- NOTE | 2019-11-10 18:48 | NUR ---
PATIENT IN BED, AWAKE, A/O X3. ON OXYGEN 2 LPM VIA NASAL CANNULA; BREATHING IS EVEN AND UNLABORED. POST SURGERY WITH ROOPA DRAIN WITH OUTPUT 200 MLS. RAC G # 22 AND L HAND G # 20 PATENT AND INTACT, FLUSHING WELL. ALL NEEDS ATTENDED. PATIENT NEEDS TO WALK MORE FREQUENTLY. PATIENT HAS VISION PROBLEMS AND NEEDS HELP WITH AMBULATION AND ADL'S. SAFETY PRECAUTIONS IN PLACE; BED IN LOW POSITION AND LOCKED, RAILS UP X2, CALL LIGHT WITHIN REACH. WILL ENDORSE TO JOB CHECKER NURSE FOR GARFIELD.
--- NOTE | 2019-11-10 19:00 | NUR ---
RN OPENING NOTES Received patient awake resting on bed. No respiratory distress noted at this time. Comfortable on bed. Call light within easy reach. Will continue to monitor accordingly.
[2019-11-10 20:00] VITALS: BP 136/75
[2019-11-10 20:45] VITALS: BP 136/75
--- NOTE | 2019-11-11 05:00 | NUR ---
RN NOTES Routine dressing change to ROOPA site as ordered. Current dressing noted soaked with serosanguineous drainage. Suture is intact. Surrounding skin noted pinkish and tender on palpation. Bulb emptied with 75ml serosanguineous fluid. Dressing changed aseptically. Kept bulb tubings free from kink, and bulb is squeezed flat. Procedure tolerated well.
--- NOTE | 2019-11-11 06:48 | NUR ---
RN CLOSING NOTES Pt asleep on bed, easily awaken. No new complaints made. Pt able to ambulate to bathroom, with 1 person minimal assist, for personal needs, tolerating well, minimal pain noted. Pt turns and repositions on bed independently. All nursing needs attended, medicated for pain, noted effective. Kept on bed clean, dry and comfortable. Call light within easy reach. Endorsed.
[2019-11-11 07:21] LABS: CALCIUM, SERUM 9.1 mg/dL (8.5-10.1); CREATININE 1.1 mg/dL (0.6-1.3); MAGNESIUM 1.8 mg/dL (1.8-2.4); POTASSIUM 3.9 mmol/L (3.5-5.1)
[2019-11-11 07:37] LABS: BASOPHILS # (AUTO) 0.1 /CMM (0.0-0.2); BASOPHILS % (AUTO) 0.7 % (0.0-2.0); EOSINOPHILS % (AUTO) 3.3 % (0.0-6.0); HEMATOCRIT 31 % (33-45); HEMOGLOBIN 10.1 g/dL (11.5-14.8); LYMPHOCYTES # (AUTO) 2.9 /CMM (0.8-4.8); LYMPHOCYTES % (AUTO) 20.1 % (20.0-44.0); MEAN CORPUSCULAR HGB CONC 33 g/dl (31.0-36.0); MEAN CORPUSCULAR VOLUME 85 fL (82-100); MONOCYTES # (AUTO) 1.1 /CMM (0.1-1.30); MONOCYTES % (AUTO) 7.7 % (2.0-12.0); NEUTROPHILS # (AUTO) 9.8 /CMM (1.8-8.9); NEUTROPHILS % (AUTO) 68.2 % (43.0-81.0); PLATELET COUNT (AUTO) 347 /CMM (150-450); RED BLOOD CELL COUNT(AUTO) 3.66 MIL/uL (4.0-5.2); WHITE BLOOD COUNT (AUTO) 14.4 K/uL (4.3-11.0)
[2019-11-11 08:00] VITALS: BP 148/59
--- NOTE | 2019-11-11 08:00 | NUR ---
RN NOTES RECEIVED PATIENT IN THE BED, ASSIST GOING BATHROOM. PATIENT WAS COMPLAINING OF PAIN 5/10 PER PAIN SCALE, BUT REFUSED TAKE PAIN MEDICATION, NO ACUTE RESPIRATORY DISTRESS, V/S WNL, ADMINISTERED SCHEDULED MEDICATION, PATIENT TOLERATED BREAKFAST WELL, GOAL IS WALKING USING WALKER. CALL LIGHT WITHIN TO REACH, CONTINUED MONITORING.
[2019-11-11] MEDS: LOSARTAN POTASSIUM 50 MG TABLET PO SCH ×2 (08:19→16:46)
[2019-11-11] MEDS: PANTOPRAZOLE 40 MG TABLET.DR PO SCH (08:20)
[2019-11-11] MEDS: ESCITALOPRAM OXALATE (10 MG) 10 MG TABLET PO SCH (08:20)
[2019-11-11] MEDS: MONTELUKAST SODIUM (10MG) 10 MG TABLET PO SCH (08:20)
[2019-11-11] MEDS: MAGNESIUM OXIDE 400 MG TABLET PO SCH (08:20)
[2019-11-11] MEDS: GABAPENTIN 300 MG CAPSULE PO SCH (08:20)
[2019-11-11] MEDS: METHIMAZOLE (5MG) 5 MG TABLET PO SCH (08:21)
--- NOTE | 2019-11-11 10:00 | NUR ---
RN NOTES PATIENT WALKING IN THE HALLWAY USING WALKER, SAFETY PRECAUTION MAINTAINED ALL THE TIME.
[2019-11-11] MEDS ORDERED: MAGNESIUM CITRATE 296 ML BOTTLE PO SCH (11:30)
[2019-11-11] MEDS ORDERED: ERYTHROMYCIN BASE (250 MG) 250 MG CAPSULE.DR PO SCH (13:00)
--- NOTE | 2019-11-11 14:00 | NUR ---
RN NOTES SEEN SURGEON NICOLASA MORENO PATIENT WILL GO HOME TOMORROW. ENCOURAGED PATIENT TO AMBULATE MUCH POSSIBLE.
[2019-11-11] MEDS: CEFTRIAXONE 1 G in IV D5W 50 ML IV SCH (14:17)
[2019-11-11] MEDS: MORPHINE SULFATE INJ 2 MG/ML DISP.SYRIN IV PRN (14:17)
--- NOTE | 2019-11-11 15:42 | NUR ---
RN NOTES ADMINISTERED MORPHINE SULFATE 1 MG /ML IV PUSH FOR RIGHT LOWER ABDOMEN, V/S TAKEN 120/61, P-81, CONTINUED MONITORING.
[2019-11-11 16:00] VITALS: BP 117/43
--- NOTE | 2019-11-11 18:00 | NUR ---
RN NOTES ADMINISTERED SCHEDULED MEDICATION PATIENT TOLERATED DINNER 50% , CALL LIGHT WITHIN TO REACH. ROOPA INTAKE, DRAINED 65 ML TOTAL. CALL LIGHT WITHIN TO REACH. ENDORSED ONCOMING NURSE FOLLOW PLAN OF CARE.
--- NOTE | 2019-11-11 19:45 | NUR ---
MS RN OPENING NOTES RECEIVED PATIENT FROM MORNING SHIFT, ALERT AND ORIENTED X 4. VERBALLY RESPONSIVE AND ABLE TO FOLLOW DIRECTIONS. BREATHING REGULAR AND UNLABORED ON ROOM AIR. LEFT HAND G22 IV LINE INTACT AND PATENT, FLUSHING WELL WITH NO BLEEDING OR S/S OF INFILTRATION NOTED. DENIES SUICIDAL IDEATION OR PAIN/DISCOMFORT AT THIS TIME. ROOPA DRAIN INTACT WITH SCANT SEROSANGUINEOUS OUTPUT NOTED. SEEN WITH ABDOMINAL INCISIONS NO BLEEDING OR S/S OF INFECTION OBSERVED, DRESSING CLEAN AND DRY. BED LOW AND LOCKED ON SEMI FOWLERS POSITION. CALL LIGHT IN REACH. WILL CONTINUE TO MONITOR.
[2019-11-11 20:00] VITALS: BP 121/66
--- NOTE | 2019-11-11 21:00 | NUR ---
MS RN NOTES PATIENT REFUSED DVT PUMP D/T AGGRESSIVE AMBULATION. WILL FOLLOW-UP WITH MD FOR ORDERS OF CHEMICAL DVT PPX.
--- NOTE | 2019-11-12 01:00 | NUR ---
MS SÁNCHEZ NOTES REQUESTED FOR TAP WATER ENEMA ADMINISTRATION, FELT RESISTANCE AND WAS ONLY ABLE TO GIVE HALF OF THE SOLUTION. Addendum: 11/12/19 at 0512 by ISELA TORRES RN WRONG ENTRY
--- NOTE | 2019-11-12 05:20 | NUR ---
MS RN NOTES COMPLAINED OF 6/10 ABDOMINAL INCISION PAIN, MOTRIN 400MG TABLET GIVEN BY MOUTH. NON-PHARMACOLOGICAL INTERVENTIONS PROVIDED. WILL CONTINUE TO MONITOR.
--- NOTE | 2019-11-12 06:25 | NUR ---
MS RN CLOSING NOTES PATIENT IN BED ALERT AND ORIENTED X 4. AFEBRILE WITH NO S/S OF DISTRESS OBSERVED. LEFT HAND G20 AND RIGHT AC G22 IV LINES PATENT AND FLUSHING WELL. NO COMPLAINTS OF PAIN/DISCOMFORT REPORTED AT THIS TIME. ROOPA DRAIN INTACT WITH 10CC SEROSANGUINEOUS OUTPUT. BED LOW AND LOCKED ON SEMI FOWLERS POSITION. CALL LIGHT IN REACH. WILL ENDORSE TO MORNING SHIFT FOR GARFIELD.
[2019-11-12 06:56] LABS: BASOPHILS # (AUTO) 0.1 /CMM (0.0-0.2); BASOPHILS % (AUTO) 0.8 % (0.0-2.0); EOSINOPHILS % (AUTO) 5.3 % (0.0-6.0); HEMATOCRIT 29 % (33-45); HEMOGLOBIN 9.4 g/dL (11.5-14.8); LYMPHOCYTES # (AUTO) 2.1 /CMM (0.8-4.8); LYMPHOCYTES % (AUTO) 19.3 % (20.0-44.0); MEAN CORPUSCULAR HGB CONC 33 g/dl (31.0-36.0); MEAN CORPUSCULAR VOLUME 85 fL (82-100); MONOCYTES # (AUTO) 0.9 /CMM (0.1-1.30); MONOCYTES % (AUTO) 8.2 % (2.0-12.0); NEUTROPHILS # (AUTO) 7.3 /CMM (1.8-8.9); NEUTROPHILS % (AUTO) 66.4 % (43.0-81.0); PLATELET COUNT (AUTO) 291 /CMM (150-450); RED BLOOD CELL COUNT(AUTO) 3.37 MIL/uL (4.0-5.2); WHITE BLOOD COUNT (AUTO) 10.9 K/uL (4.3-11.0)
[2019-11-12 07:01] LABS: CALCIUM, SERUM 8.8 mg/dL (8.5-10.1); CREATININE 1.1 mg/dL (0.6-1.3); POTASSIUM 3.8 mmol/L (3.5-5.1)
[2019-11-12 08:00] VITALS: BP 133/70
--- NOTE | 2019-11-12 08:00 | NUR ---
RN NOTES RECEIVED PATIENT IN THE BED AWAKE, NO ACUTE RESPIRATORY DISTRESS, V/S SABLE, TOLERATED BREAKFAST WELL, WAS COMPLAINING OF PAIN 4/10 ON RIGHT MID REGION, BUT REFUSED COVERAGE. IV ACCESS ON LEFT HAND, AND RIGHT AC AREA INTACT. ROOPA DRAINAGE INTACT, NO DRAINAGE AT THIS TIME. CALL LIGHT WITHIN TO REACH, PATIENT USING BATHROOM. ADMINISTERED SCHEDULED MEDICATION.
[2019-11-12 08:44] VITALS: BP 133/70
[2019-11-12] MEDS: MONTELUKAST SODIUM (10MG) 10 MG TABLET PO SCH (08:52)
[2019-11-12] MEDS: GABAPENTIN 300 MG CAPSULE PO SCH (08:52)
[2019-11-12] MEDS: ESCITALOPRAM OXALATE (10 MG) 10 MG TABLET PO SCH (08:52)
[2019-11-12] MEDS: LOSARTAN POTASSIUM 50 MG TABLET PO SCH ×2 (08:52→17:46)
[2019-11-12] MEDS: MAGNESIUM OXIDE 400 MG TABLET PO SCH (08:53)
[2019-11-12] MEDS: PANTOPRAZOLE 40 MG TABLET.DR PO SCH (08:53)
[2019-11-12] MEDS: METHIMAZOLE (5MG) 5 MG TABLET PO SCH (08:54)
--- NOTE | 2019-11-12 08:55 | NUR ---
RN NOTES PATIENT AMBULATING IN THE HALLWAY AT THIS TIME USING WALKER, REFUSED PAIN, PASSING GAS.
[2019-11-12] MEDS ORDERED: ONDA4TAB5 PO (10:29)
[2019-11-12] MEDS ORDERED: HYDR-3972 PO (10:29)
[2019-11-12] MEDS ORDERED: LEVO500T75 PO (10:29)
[2019-11-12] MEDS ORDERED: IBUP-1953 PO (10:29)
--- NOTE | 2019-11-12 12:14 | NUR ---
RN NOTES ADMINISTERED NARCO 5/325 MG PO PRN FOR RIGHT MID ABDOMEN SURGERY AREA 10/16 PER PATIENT REQUEST, V/S TAKEN BP 130/70, P-71. ALSO PATIENT GOING TO BE D/C HOME WITH HOME HEALTH.
[2019-11-12] MEDS: CEFTRIAXONE 1 G in IV D5W 50 ML IV SCH (13:41)
[2019-11-12 16:00] VITALS: BP 123/53
[2019-11-12 17:46] VITALS: BP 133/53
--- NOTE | 2019-11-12 18:35 | NUR ---
FRAME POLISHER NOTES PATIENT DISCHARGE AT THIS TIME GOING HOME WITH HOME HEALTH. PATIENT STABLE, V/S WNL. REFUSED PAIN. MED RECONCILIATION AND DISCHARGE ORDER REVIEWED AND EXPLAINED TO PATIENT, AND DAUGHTER NAME GENE. PATIENT VERBALIZED UNDERSTANDING. REMOVED ROOPA BY SURGEON DR THOMPSON, PATIENT WILL FOLLOW SURGEON IN TWO WEEKS. PICTURE TAKEN. BELONGING WITH THE PATIENT. PATIENT SIGN PAPERWORK, PRESCRIPTION HANDED TO THE PATIENT WITH OTHER SIGNED PAPERWORK. ESCORTED PATIENT TO THE LOBBY FOR SAFETY.PATIENT ACCESS REGISTRAR BY DAUGHTER NAME GENE PHONE # [phone].
== END 2019-11-12 18:35 | disposition home health service (06) | DRG 417 ==
LOC: ER 15:52 → MED 17:25 → MEDSG1 17:57 → MEDSG2 11-07 22:14
PROVIDERS: ADMIT Internal Medicine; ATTEND Nurse Practitioner Acute Care
PROC: 0FT44ZZ Resection of Gallbladder, Percutaneous Endoscopic Approach (ICD-10-PCS; principal; 2019-11-09)
PROC: 0FB04ZX Excision of Liver, Percutaneous Endoscopic Approach, Diagnostic (ICD-10-PCS; 2019-11-09)
DX: K80.00 Calculus of gallbladder with acute cholecystitis without obstruction (principal); K65.9 Peritonitis, unspecified; N17.0 Acute kidney failure with tubular necrosis; E44.0 Moderate protein-calorie malnutrition; K21.9 Gastro-esophageal reflux disease without esophagitis; M81.0 Age-related osteoporosis without current pathological fracture; E05.90 Thyrotoxicosis, unspecified without thyrotoxic crisis or storm; E87.6 Hypokalemia; Z79.82 Long term (current) use of aspirin; Z79.899 Other long term (current) drug therapy; Z79.83 Long term (current) use of bisphosphonates; Z82.49 Family history of ischemic heart disease and other diseases of the circulatory system; D50.9 Iron deficiency anemia, unspecified; G62.9 Polyneuropathy, unspecified; E03.9 Hypothyroidism, unspecified; K82.8 Other specified diseases of gallbladder; E83.42 Hypomagnesemia; I12.9 Hypertensive chronic kidney disease with stage 1 through stage 4 chronic kidney disease, or unspecified chronic kidney disease; N18.9 Chronic kidney disease, unspecified; E80.6 Other disorders of bilirubin metabolism; E66.9 Obesity, unspecified; Z68.32 Body mass index [BMI] 32.0-32.9, adult; K76.0 Fatty (change of) liver, not elsewhere classified; J44.9 Chronic obstructive pulmonary disease, unspecified
CPT/HCPCS: 36415; 71045-TC; 74181-TC; 76700-TC; 80048-TC; 80053-TC; 80076-TC; 81000-TC; 82550-TC; 82728-TC; 83540-TC; 83690-TC; 83735-TC; 83970; 84100-TC; 84155; 84165; 84439-TC; 84443-TC; 84481; 85025-TC; 85730-TC; 86850-TC; 87081-TC; 87086-TC; 87186-TC; 88304-TC; 88307-TC; 88313-TC; 93307-TC; G0378; J0696; J1100; J1170; J2250; J2270; J2405; J2543; J2704; J2710; J2765; J3010; J3475; J3480; J3490; J7030; J7040; J7050; J7060; U0003-CS

== ENCOUNTER 2023-12-19 09:20 | Inpatient (IN) | payer MEDICARE, OTHER ==
[~2023-12-19] VITALS: Ht 157.5 cm; Wt 86.2 kg
[~2023-12-19 09:20] MED LIST changes: +ALEN70TA80 MT; +ASPI-1420 PO; -ATEN50TA PO; +DEXL30CA3 MT; -DIPH1TAB PO; +ERGO500093 MT; +ESCI20TA PO; +FERR325T24 PO; +GABA300C MT; +HYDR-3972 PO; +HYDR12.55 MT; +IBUP-1953 PO; +LEVO500T23 PO; -LOSA1TAB36 PO; +LOSA50TA39 MT; +MAGN400T26 MT; -MELO-105 PO; +MELO-107 MT; -METH10TA7 PO; +METH5TAB6 PO; +MONT10TA22 MT; +MYRBETRIQ MT; +OMEP20CA15 PO; -OMEP40CA13 PO; +ONDA4TAB5 PO; -SULF1TAB44 PO; +TEMA15CA PO
[2023-12-19 09:36] VITALS: O2SAT 98
[2023-12-19 10:08] LABS: BASOPHILS % (AUTO) 0.8 % (0.0-2.0); EOSINOPHILS % (AUTO) 0.3 % (0.0-6.0); HEMATOCRIT 31 % (33-45); HEMOGLOBIN 10.4 g/dL (11.5-14.8); LYMPHOCYTES # (AUTO) 1.4 K/uL (0.8-4.8); LYMPHOCYTES % (AUTO) 28.7 % (20.0-44.0); MEAN CORPUSCULAR HEMOGLOBIN 28 PG (26.0-33.0); MEAN CORPUSCULAR HGB CONC 33 g/dl (31.0-36.0); MEAN CORPUSCULAR VOLUME 83 fL (82-100); MONOCYTES # (AUTO) 0.7 K/uL (0.1-1.30); MONOCYTES % (AUTO) 14.8 % (2.0-12.0); NEUTROPHILS # (AUTO) 2.7 K/uL (1.8-8.9); NEUTROPHILS % (AUTO) 55.4 % (43.0-81.0); PLATELET COUNT (AUTO) 153 K/uL (150-450); RED BLOOD CELL COUNT(AUTO) 3.77 MIL/uL (4.0-5.2); RED CELL DISTRIBUTION WIDTH 14.8 % (11.5-15.0); WHITE BLOOD COUNT (AUTO) 4.8 K/uL (4.3-11.0)
[2023-12-19 10:20] LABS: ALANINE AMINOTRANSFERASE 71 U/L (12-78); ALBUMIN 3.7 g/dL (3.4-5.0); ALKALINE PHOSPHATASE 75 U/L (46-116); ASPARTATE AMINOTRANSFERASE 52 U/L (15-37); BILIRUBIN,DIRECT 0.2 mg/dL (0.0-0.2); BILIRUBIN,TOTAL 0.6 mg/dL (0.2-1.0); CALCIUM, SERUM 8.9 mg/dL (8.5-10.1); CARBON DIOXIDE 28 mmol/L (21-32); CHLORIDE 96 mmol/L (98-107); CREATININE 1.6 mg/dL (0.6-1.3); GLUCOSE 104 mg/dL (74-106); POTASSIUM 3.4 mmol/L (3.5-5.1); SODIUM SERUM 134 mmol/L (136-145); TOTAL PROTEIN, SERUM 7.4 g/dL (6.4-8.2); UREA NITROGEN, BLOOD 36 mg/dL (7-18)
[2023-12-19] MEDS: IV NS 0.9% 500 ML BAG IV ONE (10:20)
[2023-12-19 10:37] LABS: INR 1.07 (0.91-1.10); LACTIC ACID 0.9 mmol/L (0.4-2.0); PARTIAL THROMBOPLASTIN TIME 30.8 SEC (24.3-34.3); PROTHROMBIN TIME 11.3 SECS (9.2-11.1)
[2023-12-19] MEDS ORDERED: GABA-532 PO (10:54)
[2023-12-19] MEDS ORDERED: LOSA1TAB36 PO (10:54)
[2023-12-19] MEDS ORDERED: MECL-159 PO (10:54)
[2023-12-19] MEDS ORDERED: [UNRECOGNIZED DRUG - CODE] PO (10:54)
[2023-12-19] MEDS ORDERED: ATEN50TA PO (10:54)
[2023-12-19] MEDS ORDERED: ACET-73 PO (10:54)
[2023-12-19] MEDS ORDERED: ALPR0.5T8 PO (10:56)
[2023-12-19 11:08] LABS: APPEARANCE,URINE CLEAR (CLEAR); BILIRUBIN,URINE NEGATIVE (NEGATIVE); BLOOD, URINE 1+ Ery/uL (NEGATIVE); COLOR,URINE YELLOW (YELLOW); KETONES,URINE NEGATIVE (NEGATIVE); LEUKOCYTE ESTERASE ,URINE 1+ (NEGATIVE); NITRITE, URINE NEGATIVE (NEGATIVE); PROTEIN,URINE 1+ mg/dl (NEGATIVE); UGLUCOSE NEGATIVE (NEGATIVE); UROBILINOGEN,URINE 0.2 EU/dL (0.2)
[2023-12-19 11:19] LABS: BACTERIA,URINE Many /HPF (None Seen); SQUAMOUS EPITHELIAL CELL,UR Few /HPF (None Seen)
[2023-12-19 11:21] LABS: ADD URINE CULTURE YES; WBC,URINE 81-100 /HPF (0-3)
[2023-12-19] MEDS ORDERED: CEFTRIAXONE 1GM BAG (ER ONLY) 50 ML IV ONE (11:53)
[2023-12-19] MEDS: CEFTRIAXONE 1GM BAG (ER ONLY) 1 GM/50 ML PIGGYBACK IV ONE (11:56)
[2023-12-19] MEDS ORDERED: HOME MED MISCELLANEOUS XX SCH (12:30)
[2023-12-19] MEDS ORDERED: ONDANSETRON HCL/PF 4 MG/2 ML VIAL IVP PRN (12:30)
[2023-12-19] MEDS ORDERED: CEFTRIAXONE 1 G in IV D5W 50 ML IV SCH (12:30)
[2023-12-19] MEDS ORDERED: MAG HYDROX/AL HYDROX/SIMETH 30 ML UDC PO PRN (12:30)
[2023-12-19] MEDS ORDERED: ACETAMINOPHEN 325 MG TABLET PO PRN (12:30)
[2023-12-19] MEDS ORDERED: TEMAZEPAM 15 MG CAPSULE PO PRN (12:30)
[2023-12-19] MEDS ORDERED: Z GUARD REMEDY 4 OZ OINT TP PRN (12:30)
[2023-12-19] MEDS ORDERED: HYDROCODONE/APAP 5/325MG TABLET PO PRN (12:30)
[2023-12-19] MEDS ORDERED: ERGOCALCIFEROL (VITAMIN D 2) 50,000 UNIT CAPSULE PO SCH (14:00)
[2023-12-19] MEDS: IV NS 0.9% 1,000 ML IV PRN (19:29)
[2023-12-19 20:13] VITALS: BP 138/70; TEMP 98.4; O2SAT 95
[2023-12-20 06:46] LABS: BASOPHILS # (AUTO) 0.1 K/uL (0.0-0.2); BASOPHILS % (AUTO) 0.9 % (0.0-2.0); EOSINOPHILS % (AUTO) 0.7 % (0.0-6.0); HEMATOCRIT 33 % (33-45); HEMOGLOBIN 10.8 g/dL (11.5-14.8); LYMPHOCYTES # (AUTO) 1.8 K/uL (0.8-4.8); LYMPHOCYTES % (AUTO) 31.4 % (20.0-44.0); MEAN CORPUSCULAR HEMOGLOBIN 28 PG (26.0-33.0); MEAN CORPUSCULAR HGB CONC 33 g/dl (31.0-36.0); MEAN CORPUSCULAR VOLUME 84 fL (82-100); MONOCYTES # (AUTO) 0.8 K/uL (0.1-1.30); MONOCYTES % (AUTO) 13.9 % (2.0-12.0); NEUTROPHILS # (AUTO) 3.1 K/uL (1.8-8.9); NEUTROPHILS % (AUTO) 53.1 % (43.0-81.0); PLATELET COUNT (AUTO) 151 K/uL (150-450); RED CELL DISTRIBUTION WIDTH 14.4 % (11.5-15.0); WHITE BLOOD COUNT (AUTO) 5.7 K/uL (4.3-11.0)
[2023-12-20 07:18] LABS: CALCIUM, SERUM 9.1 mg/dL (8.5-10.1); CARBON DIOXIDE 25 mmol/L (21-32); CHLORIDE 100 mmol/L (98-107); CREATININE 1.4 mg/dL (0.6-1.3); GLUCOSE 95 mg/dL (74-106); MAGNESIUM 1.7 mg/dL (1.8-2.4); PHOSPHORUS 2.9 mg/dL (2.5-4.9); POTASSIUM 3.1 mmol/L (3.5-5.1); SODIUM SERUM 135 mmol/L (136-145); UREA NITROGEN, BLOOD 33 mg/dL (7-18)
[2023-12-20] MEDS: PANTOPRAZOLE 40 MG TABLET.DR PO SCH (08:22)
[2023-12-20 08:23] LABS: CHOLESTEROL 143 mg/dL (<200); HDL CHOLESTEROL 43 mg/dL (40-60); LDL 51 mg/dL (0-99); TRIGLYCERIDES 150 mg/dL (30-150)
[2023-12-20 08:35] VITALS: BP 138/70; TEMP 98.2; O2SAT 94
[2023-12-20] MEDS: FERROUS SULFATE (325 MG) 325 MG/TAB TABLET PO SCH (09:46)
[2023-12-20] MEDS: GABAPENTIN 100 MG CAPSULE PO SCH (09:46)
[2023-12-20] MEDS: ESCITALOPRAM OXALATE (10 MG) 10 MG TABLET PO SCH (09:46)
[2023-12-20] MEDS: MECLIZINE HCL 25 MG TABLET PO SCH (09:46)
[2023-12-20] MEDS: ASPIRIN EC 81 MG TABLET.DR PO SCH (09:46)
[2023-12-20] MEDS: METHIMAZOLE (5MG) 5 MG TABLET PO SCH (09:46)
[2023-12-20] MEDS: ATENOLOL 50 MG TABLET PO SCH (09:47)
[2023-12-20] MEDS: CEFTRIAXONE 1 G in IV D5W 50 ML IV SCH (11:00)
[2023-12-20] MEDS: POTASSIUM CHLORIDE 20 MEQ TAB.PRT.SR PO ONE (11:07)
[2023-12-20] MEDS: MAGNESIUM OXIDE 400 MG TABLET PO ONE (11:08)
[2023-12-20 16:06] VITALS: BP 98/52; TEMP 99; O2SAT 95
[2023-12-20 17:25] LABS: CREATININE, URINE 177.7 MG/DL (30.0-125.0); URINE TOTAL PROTEIN 91.6 mg/dL (0-11.9)
[2023-12-20] MEDS: MAGNESIUM HYDROXIDE 30 ML UDC PO PRN (18:25)
[2023-12-20 20:22] VITALS: BP 111/55; TEMP 97.9; O2SAT 100
[2023-12-21 06:32] LABS: BASOPHILS % (AUTO) 0.8 % (0.0-2.0); EOSINOPHILS # (AUTO) 0.1 K/uL (0.0-0.7); EOSINOPHILS % (AUTO) 2.1 % (0.0-6.0); HEMATOCRIT 32 % (33-45); HEMOGLOBIN 10.8 g/dL (11.5-14.8); LYMPHOCYTES # (AUTO) 2.1 K/uL (0.8-4.8); LYMPHOCYTES % (AUTO) 37.3 % (20.0-44.0); MEAN CORPUSCULAR HEMOGLOBIN 28 PG (26.0-33.0); MEAN CORPUSCULAR HGB CONC 33 g/dl (31.0-36.0); MEAN CORPUSCULAR VOLUME 83 fL (82-100); MONOCYTES # (AUTO) 0.7 K/uL (0.1-1.30); MONOCYTES % (AUTO) 11.7 % (2.0-12.0); NEUTROPHILS # (AUTO) 2.7 K/uL (1.8-8.9); NEUTROPHILS % (AUTO) 48.1 % (43.0-81.0); PLATELET COUNT (AUTO) 145 K/uL (150-450); RED BLOOD CELL COUNT(AUTO) 3.88 MIL/uL (4.0-5.2); RED CELL DISTRIBUTION WIDTH 14.3 % (11.5-15.0); WHITE BLOOD COUNT (AUTO) 5.6 K/uL (4.3-11.0)
[2023-12-21 06:51] LABS: ALANINE AMINOTRANSFERASE 89 U/L (12-78); ALBUMIN 3.1 g/dL (3.4-5.0); ALKALINE PHOSPHATASE 67 U/L (46-116); ASPARTATE AMINOTRANSFERASE 53 U/L (15-37); BILIRUBIN,TOTAL 0.4 mg/dL (0.2-1.0); CALCIUM, SERUM 8.9 mg/dL (8.5-10.1); CARBON DIOXIDE 25 mmol/L (21-32); CHLORIDE 103 mmol/L (98-107); CREATININE 1.4 mg/dL (0.6-1.3); GLUCOSE 94 mg/dL (74-106); PHOSPHORUS 2.5 mg/dL (2.5-4.9); POTASSIUM 3.1 mmol/L (3.5-5.1); SODIUM SERUM 138 mmol/L (136-145); TOTAL PROTEIN, SERUM 6.7 g/dL (6.4-8.2); UREA NITROGEN, BLOOD 31 mg/dL (7-18)
[2023-12-21 08:00] VITALS: BP 126/57; TEMP 97.5; O2SAT 95
[2023-12-21 08:30] LABS: CREATINE KINASE, TOTAL 105 U/L (26-192)
[2023-12-21] MEDS: POTASSIUM CHLORIDE 20 MEQ TAB.PRT.SR PO ONE (08:53)
[2023-12-21 08:54] VITALS: BP 126/57
[2023-12-21] MEDS ORDERED: CEPH-570 PO (09:45)
[2023-12-22 05:08] LABS: PTH, INTACT 24 pg/mL (15-65)
== END 2023-12-21 15:01 | disposition home or self-care (01) | DRG 689 ==
LOC: ER 09:31 → MED 11:42
PROVIDERS: ADMIT Nurse Practitioner Acute Care; ATTEND Internal Medicine
DX: N39.0 Urinary tract infection, site not specified (principal); N17.0 Acute kidney failure with tubular necrosis; E87.1 Hypo-osmolality and hyponatremia; E87.6 Hypokalemia; E86.0 Dehydration; E86.1 Hypovolemia; B96.89 Other specified bacterial agents as the cause of diseases classified elsewhere; I12.9 Hypertensive chronic kidney disease with stage 1 through stage 4 chronic kidney disease, or unspecified chronic kidney disease; N18.9 Chronic kidney disease, unspecified; D64.9 Anemia, unspecified; E03.9 Hypothyroidism, unspecified; E66.01 Morbid (severe) obesity due to excess calories; Z68.34 Body mass index [BMI] 34.0-34.9, adult; E83.42 Hypomagnesemia; F32.A Depression, unspecified; H35.52 Pigmentary retinal dystrophy; M89.8X9 Other specified disorders of bone, unspecified site; Z79.82 Long term (current) use of aspirin; Z79.899 Other long term (current) drug therapy; K21.9 Gastro-esophageal reflux disease without esophagitis; H91.13 Presbycusis, bilateral; Z82.49 Family history of ischemic heart disease and other diseases of the circulatory system
CPT/HCPCS: 36415; 70450-TC; 71045-TC; 80048-TC; 80053-TC; 80061-TC; 80076-TC; 81001; 82550-TC; 82570-TC; 83605-TC; 83735-TC; 83970; 84100-TC; 84155; 84165; 84300-TC; 84443-TC; 84484-TC; 85025-TC; 85730-TC; 87040-TC; 87086-TC; 97116-TC; 97530-TC; A4223; G0378; J0696; J7030; J7060; J8597

== ENCOUNTER 2023-12-30 09:16 | Emergency (ER) | payer MEDICARE, OTHER ==
[~2023-12-30] VITALS: Ht 175.3 cm; Wt 78.0 kg
[~2023-12-30 09:16] MED LIST changes: +ACET-73 PO; -ALEN70TA80 MT; +ALPR0.5T8 PO; +ATEN50TA PO; +CEPH-570 PO; -DEXL30CA3 MT; +GABA-532 PO; -GABA300C MT; -HYDR-3972 PO; -HYDR12.55 MT; -IBUP-1953 PO; -LEVO500T23 PO; +LOSA1TAB36 PO; -LOSA50TA39 MT; -MAGN400T26 MT; -MECL-118 PO; +MECL-159 PO; -MELO-107 MT; -MONT10TA22 MT; -MYRBETRIQ MT; -ONDA4TAB5 PO; +[UNRECOGNIZED DRUG - CODE] PO
--- NOTE | 2023-12-30 09:30 | NUR ---
bibra 39 frm home gen. weakness for 2 weeks. was dx of UTI 2 weeks ago. pt taken to room 10 and connected to monitor. waiting for er md zuleta.
--- NOTE | 2023-12-30 09:33 | NUR ---
er at bedside for eval
[2023-12-30 10:07] LABS: BASOPHILS # (AUTO) 0.1 K/uL (0.0-0.2); BASOPHILS % (AUTO) 0.8 % (0.0-2.0); EOSINOPHILS # (AUTO) 0.1 K/uL (0.0-0.7); HEMATOCRIT 32 % (33-45); HEMOGLOBIN 10.7 g/dL (11.5-14.8); LYMPHOCYTES # (AUTO) 1.7 K/uL (0.8-4.8); LYMPHOCYTES % (AUTO) 17.6 % (20.0-44.0); MEAN CORPUSCULAR HEMOGLOBIN 27 PG (26.0-33.0); MEAN CORPUSCULAR HGB CONC 33 g/dl (31.0-36.0); MEAN CORPUSCULAR VOLUME 82 fL (82-100); MONOCYTES # (AUTO) 0.8 K/uL (0.1-1.30); MONOCYTES % (AUTO) 8.9 % (2.0-12.0); NEUTROPHILS # (AUTO) 6.8 K/uL (1.8-8.9); NEUTROPHILS % (AUTO) 71.7 % (43.0-81.0); PLATELET COUNT (AUTO) 291 K/uL (150-450); RED CELL DISTRIBUTION WIDTH 14.2 % (11.5-15.0); WHITE BLOOD COUNT (AUTO) 9.4 K/uL (4.3-11.0)
[2023-12-30 10:26] LABS: MAGNESIUM 1.7 mg/dL (1.8-2.4)
[2023-12-30 10:30] LABS: CALCIUM, SERUM 9.9 mg/dL (8.5-10.1); CARBON DIOXIDE 28 mmol/L (21-32); CHLORIDE 92 mmol/L (98-107); CREATININE 1.3 mg/dL (0.6-1.3); GLUCOSE 118 mg/dL (74-106); POTASSIUM 3.3 mmol/L (3.5-5.1); SODIUM SERUM 131 mmol/L (136-145); UREA NITROGEN, BLOOD 19 mg/dL (7-18)
[2023-12-30 10:36] LABS: ALANINE AMINOTRANSFERASE 64 U/L (12-78); ALBUMIN 3.4 g/dL (3.4-5.0); ALKALINE PHOSPHATASE 91 U/L (46-116); ASPARTATE AMINOTRANSFERASE 27 U/L (15-37); BILIRUBIN,DIRECT 0.2 mg/dL (0.0-0.2); BILIRUBIN,TOTAL 0.6 mg/dL (0.2-1.0); LIPASE 79 U/L (16-77); TOTAL PROTEIN, SERUM 7.5 g/dL (6.4-8.2)
[2023-12-30] MEDS: IV NS 0.9% 500 ML BAG IV ONE (10:41)
[2023-12-30 11:10] LABS: APPEARANCE,URINE CLEAR (CLEAR); BILIRUBIN,URINE NEGATIVE (NEGATIVE); BLOOD, URINE NEGATIVE Ery/uL (NEGATIVE); COLOR,URINE YELLOW (YELLOW); KETONES,URINE NEGATIVE (NEGATIVE); LEUKOCYTE ESTERASE ,URINE 1+ (NEGATIVE); NITRITE, URINE NEGATIVE (NEGATIVE); PROTEIN,URINE TRACE mg/dl (NEGATIVE); UGLUCOSE NEGATIVE (NEGATIVE); UROBILINOGEN,URINE 0.2 EU/dL (0.2)
[2023-12-30 11:28] LABS: THYROID STIMULATING HORMONE 1.84 uIU/mL (0.358-3.74)
[2023-12-30] MEDS: POTASSIUM CHLORIDE 20 MEQ TAB.PRT.SR PO ONE (11:30)
[2023-12-30] MEDS ORDERED: POTASSIUM CHLORIDE 20 MEQ TAB.PRT.SR PO ONE (11:31)
[2023-12-30 11:46] LABS: ADD URINE CULTURE YES; BACTERIA,URINE Rare /HPF (None Seen); RBC,URINE 0-2 /HPF (0-2); SQUAMOUS EPITHELIAL CELL,UR Few /HPF (None Seen)
[2023-12-30 13:34] VITALS: BP 140/70; TEMP 98.5; O2SAT 98
== END 2023-12-30 13:35 | disposition home or self-care (01) ==
LOC: ER 09:23
DX: R53.1 Weakness (principal); I10 Essential (primary) hypertension; Z79.82 Long term (current) use of aspirin; Z79.899 Other long term (current) drug therapy
CPT/HCPCS: 99285; 74176; 93005; 85025; 80048; 87086; 83690; 80076; 83735; 81001; 36415; 84443; 84484; J7040; A4223